=== PATIENT | male | born 1975 | race American Indian/Alaskan Native ===

== ENCOUNTER 2022-02-03 17:48 | Emergency (ER) | payer SELFPAY ==
[2022-02-03] MEDS ORDERED: TETANUS,DIPH,PERTUSS(ACELL) VACCINE 0.5 ML SYRINGE IM ONE (20:34)
[2022-02-03] MEDS ORDERED: ACETAMINOPHEN 325 MG TAB PO ONE (20:34)
--- NOTE | 2022-02-03 22:16 | Emergency Department Report ---
- General Chief Complaint: Laceration/Recheck/Suture Stated Complaint: CUT ON FINGER Time Seen by Provider: 02/03/22 20:57 Source: patient Mode of arrival: Ambulatory Limitations: No Limitations - History of Present Illness Initial Comments: 46-year-old black male with no past medical history presents to the emergency department for evaluation of right fifth finger laceration. He states that he accidentally cut his finger with a knife while in the kitchen. -: Sudden Extremity Location: Right: Hand Place: home Patient Tetanus UTD: No Context: accidental Associated Symptoms: none - Related Data Allergies Allergy/AdvReac Type Severity Reaction Status Date / Time No Known Allergies Allergy Verified 02/03/22 22:24 ED Review of Systems ROS: Stated complaint: CUT ON FINGER Other details as noted in HPI Comment: All other systems reviewed and negative Constitutional: denies: chills, fever Respiratory: denies: shortness of breath Cardiovascular: denies: chest pain Gastrointestinal: denies: abdominal pain, nausea, vomiting Skin: denies: rash, lesions Neurological: denies: headache ED Physical Exam - General Limitations: No Limitations General appearance: alert, in no apparent distress - Head Head exam: Present: atraumatic, normocephalic - Eye Eye exam: Present: normal appearance. Absent: conjunctival injection - Neck Neck exam: Present: normal inspection. Absent: tenderness - Respiratory Respiratory exam: Absent: respiratory distress - Cardiovascular Cardiovascular Exam: Present: regular rate - GI/Abdominal GI/Abdominal exam: Absent: distended - Expanded Upper Extremity Exam Right Hand L/R Front: 1 - Positive: laceration Vascular: Present: normal capillary refill, radial pulse. Absent: vascular compromise, Pallo, pulse deficit radial art - Back Exam Back exam: Present: normal inspection - Neurological Exam Neurological exam: Present: alert, oriented X3 - Psychiatric Psychiatric exam: Present: normal affect, normal mood, depressed - Skin Skin exam: Present: warm, dry, normal color ED Course Vital Signs 02/03/22 22:22 Pulse Rate 78 Respiratory 12 Rate Blood Pressure 152/76 [Right] O2 Sat by Pulse 100 Oximetry - Laceration /Wound Repair Right Hand Wound Location: upper extremity Wound's Depth, Shape: superficial (Right fifth finger), linear Wound Explored: clean Irrigated w/ Saline (ccs): 60 Betadine Prep?: No Anesthesia: 1% Lidocaine Volume Anesthetic (ccs): 3 Wound Repaired With: sutures Suture Size/Type: 4:0, proline Number of Sutures: 5 Layer Closure?: No Sterile Dressing Applied?: Yes Progress: Patient tolerated well. ED Medical Decision Making - Medical Decision Making 46-year-old black male with no past medical history presents to the emergency department for evaluation of right fifth finger laceration. He states that he accidentally cut his finger with a knife while in the kitchen. Right fifth finger laceration repaired per procedure note. Tdap updated. No signs of tendon damage. Patient advised to monitor for signs of infection and return to the emergency department immediately if any noted. He is advised to return to ED or follow-up with primary care provider in 7 to 10 days to have sutures removed. He verbalized understanding of and agreement with plan of care. Critical care attestation.: If time is entered above; I have spent that time in minutes in the direct care of this critically ill patient, excluding procedure time. ED Disposition Clinical Impression: Finger laceration Qualifiers: Encounter type: initial encounter Finger: little finger Damage to nail status: without damage Foreign body presence: without foreign body Laterality: right Qualified Code(s): S61.216A - Laceration without foreign body of right little finger without damage to nail, initial encounter Disposition: 01 HOME / SELF CARE / HOMELESS Is pt being admited?: No Does the pt Need Aspirin: No Condition: Stable Instructions: Laceration Care, Adult, [id number], Sutured Wound Care, [id number] Additional Instructions: Leave stitches in for 7 to 10 days then return to the emergency department follow-up with primary care provider and have them removed. Monitor for signs of infection, and if any observed return to emergency department immediately for assessment. Referrals: PRIMARY CARE [Primary Care Provider] - 3-5 Days Forms: Work/School Release Form(ED) Time of Disposition: 22:16
[2022-02-03 22:25] VITALS: BP 152/76
== END 2022-02-03 22:41 | disposition home or self-care (01) ==
LOC: ED 17:48
DX: S61.216A Laceration without foreign body of right little finger without damage to nail, initial encounter (principal); W26.0XXA Contact with knife, initial encounter; Y93.89 Activity, other specified; Y92.89 Other specified places as the place of occurrence of the external cause; Y99.8 Other external cause status
CPT/HCPCS: 90471; 90715; 99282